=== PATIENT | female | born 1985 | race Two or more races ===

== ENCOUNTER 2016-07-23 21:56 | Emergency (ER) | payer MEDICAID ==
[2016-07-23 22:44] VITALS: BP 103/71
[2016-07-23] MEDS ORDERED: BENADRYL PO ONE (22:52)
[2016-07-23] MEDS ORDERED: PEPCID PO ONE (22:52)
[2016-07-23] MEDS ORDERED: DELTASONE PO ONE (22:53)
== END 2016-07-24 00:30 | disposition left against medical advice (07) ==
LOC: ED 21:56
DX: T78.40XA Allergy, unspecified, initial encounter (principal); M79.89 Other specified soft tissue disorders; Z53.21 Procedure and treatment not carried out due to patient leaving prior to being seen by health care provider; Y92.9 Unspecified place or not applicable
CPT/HCPCS: J7512

== ENCOUNTER 2017-03-01 19:54 | Emergency (ER) | payer SELFPAY ==
[2017-03-01 20:11] VITALS: BP 130/73
[2017-03-01 20:44] LABS: Bacteria,Urine 1+ /HPF (Negative); Bilirubin,Urine NEG (Negative); Blood,Urine SM (Negative); Color,Urine Yellow (Yellow); HCG Qualitative,Urine Negative (Negative); Mucus,Urine 1+ /HPF; Nitrite,Urine NEG (Negative); Protein,Urine <15 mg/dL mg/dL (Negative)
[2017-03-01] MEDS ORDERED: ZOFRAN ODT PO ONE (22:18)
[2017-03-01] MEDS ORDERED: TRIMOX PO ONE (22:18)
[2017-03-01] MEDS ORDERED: NORCO 5/325 PO ONE (22:18)
--- NOTE | 2017-03-01 22:26 | Emergency Department Report ---
ED ENT HPI - General Chief complaint: Earache Stated complaint: EAR,ABDOMINAL PAIN Time Seen by Provider: 03/01/17 21:53 Source: patient Mode of arrival: Ambulatory Limitations: No Limitations - History of Present Illness Initial comments: PT c/o R earache, started today while at work, now pain 10/10. no meds taken PT states she currently has a URI PT states her period is supposed to start in 2 days and she has had some pelvic discomfort. PT states of the past year, she has had pain prior to her menstrual cycle. PT denies dysuria, retention, and discharge MD complaint: ear pain -: Gradual, hour(s) (7) Location: R ear Severity: severe Severity scale (0 -10): 10 Quality: aching, constant, other (pressue ) Consistency: constant Improves with: none Worsens with: position, eating, movement Context- Ear: recent illness Associated Symptoms: cough, hearing loss, rhinorrhea. denies: fever, pain with swallowing, sore throat, discharge from ear - Related Data Previous Rx's Medication Instructions Recorded Last Taken Type Acetaminophen/Codeine [Tylenol #3] 1 tab PO Q6H PRN #12 tab 03/01/17 Unknown Rx Amoxicillin 500 mg PO BID #20 capsule 03/01/17 Unknown Rx Ibuprofen [Motrin] 600 mg PO Q8H PRN #15 tablet 03/01/17 Unknown Rx Allergies Allergy/AdvReac Type Severity Reaction Status Date / Time No Known Allergies Allergy Verified 03/01/17 20:08 ED Dental HPI - General Chief complaint: Earache Stated complaint: EAR,ABDOMINAL PAIN Time Seen by Provider: 03/01/17 21:53 Source: patient Mode of arrival: Ambulatory Limitations: No Limitations - Related Data Previous Rx's Medication Instructions Recorded Last Taken Type Acetaminophen/Codeine [Tylenol #3] 1 tab PO Q6H PRN #12 tab 03/01/17 Unknown Rx Amoxicillin 500 mg PO BID #20 capsule 03/01/17 Unknown Rx Ibuprofen [Motrin] 600 mg PO Q8H PRN #15 tablet 03/01/17 Unknown Rx Allergies Allergy/AdvReac Type Severity Reaction Status Date / Time No Known Allergies Allergy Verified 03/01/17 20:08 ED Review of Systems ROS: Stated complaint: EAR,ABDOMINAL PAIN Other details as noted in HPI Comment: All other systems reviewed and negative Constitutional: malaise. denies: fever ENT: ear pain, congestion. denies: throat pain Respiratory: cough. denies: shortness of breath Gastrointestinal: abdominal pain, nausea. denies: vomiting Genitourinary: abnormal menses (painful x 1 year ). denies: dysuria, frequency , discharge ED Past Medical Hx - Past Medical History Previous Medical History?: No - Surgical History Past Surgical History?: No Additional Surgical History: x 2 - Social History Smoking Status: Never Smoker Substance Use Type: None - Medications Home Medications: Home Medications Medication Instructions Recorded Confirmed Last Taken Type Acetaminophen/Codeine [Tylenol #3] 1 tab PO Q6H PRN #12 tab 03/01/17 Unknown Rx Amoxicillin 500 mg PO BID #20 capsule 03/01/17 Unknown Rx Ibuprofen [Motrin] 600 mg PO Q8H PRN #15 tablet 03/01/17 Unknown Rx ED Physical Exam - General Limitations: No Limitations General appearance: alert, in no apparent distress - Head Head exam: Present: atraumatic, normocephalic, normal inspection - Eye Eye exam: Present: normal appearance. Absent: conjunctival injection, nystagmus - ENT ENT exam: Present: normal orophraynx, mucous membranes moist, normal external ear exam - Expanded ENT Exam Expanded TM/Canal exam: Erythema: Right TM (R TM only partially visualized due to cerumen. TM with erythema, cloudy ), Loss of Landmarks: Right TM Mouth exam: Absent: drooling, trismus Throat exam: Positive: normal inspection - Neck Neck exam: Present: normal inspection, full ROM - Respiratory Respiratory exam: Present: normal lung sounds bilaterally. Absent: respiratory distress, wheezes, rales, rhonchi - Cardiovascular Cardiovascular Exam: Present: normal rhythm, normal heart sounds - GI/Abdominal GI/Abdominal exam: Present: soft, normal bowel sounds. Absent: tenderness, guarding, rebound, rigid - External exam: Present: other (PT refused ) - Extremities Exam Extremities exam: Present: normal inspection, full ROM - Back Exam Back exam: Present: normal inspection, full ROM - Neurological Exam Neurological exam: Present: alert, oriented X3 - Psychiatric Psychiatric exam: Present: normal affect, normal mood - Skin Skin exam: Present: warm, dry, intact, normal color ED Course Vital Signs 03/01/17 03/01/17 20:08 22:28 Temperature 98.7 F Pulse Rate 110 H Respiratory 18 18 Rate Blood Pressure 130/73 O2 Sat by Pulse 100 Oximetry - Reevaluation(s) Reevaluation #1: 03/01/17 22:31 PT aware of dx and plan of care. PT aware she will need to follow up with PCP. PT advised to follow up with [facility] due to changes in her menstrual cycle. PT advised not to use qtips or put anything in her ear. - Pulse Oximetry Interpretation Digit-Finger Initial Pulse Oximetry Readin Actions Taken: none ED Medical Decision Making - Differential Diagnosis om, oe, , uti Critical Care Time: No Critical care attestation.: If time is entered above; I have spent that time in minutes in the direct care of this critically ill patient, excluding procedure time. ED Disposition Clinical Impression: Pelvic pain Right otitis media Qualifiers: Otitis media type: suppurative Chronicity: acute Recurrence: not specified as recurrent Spontaneous tympanic membrane rupture: without spontaneous rupture Qualified Code(s): H66.001 - Acute suppurative otitis media without spontaneous rupture of ear drum, right ear Disposition: DC-01 TO HOME OR SELFCARE Is pt being admited?: No Does the pt Need Aspirin: No Condition: Stable Instructions: Dysmenorrhea (ED), Otitis Media (ED) Additional Instructions: No driving or alcohol after taking Tylenol #3 Finish all your antibiotics Do not put anything in your ear Follow up with PCP and [facility] in the next week Prescriptions: Acetaminophen/Codeine [Tylenol #3] 1 tab PO Q6H PRN #12 tab PRN Reason: Pain , Severe (7-10) Amoxicillin 500 mg PO BID #20 capsule Ibuprofen [Motrin] 600 mg PO Q8H PRN #15 tablet PRN Reason: Pain Referrals: PRIMARY [facility] [Primary Care Provider] - 3-5 Days MAT JONES MD [Staff Physician] - 3-5 Days [facility] [Outside] - 3-5 Days [facility] [Provider Group] - 3-5 Days [facility] [Outside] - 3-5 Days Forms: Work/School Release Form(ED) Time of Disposition: 22:34
== END 2017-03-01 22:44 | disposition home or self-care (01) ==
LOC: ED 19:54
DX: R10.2 Pelvic and perineal pain (principal); H66.001 Acute suppurative otitis media without spontaneous rupture of ear drum, right ear; R05 Cough
CPT/HCPCS: 81001; 81025; 99283; Q0162

== ENCOUNTER 2017-05-07 08:58 | Outpatient (CLI) | payer OTHER ==
--- NOTE | 2017-05-07 11:44 | Fluoroscopy Report ---
Hysterosalpingogram: Infertility. The patient was placed supine on the fluoroscopic table. A speculum was successfully placed through which a 5 Egyptian catheter was placed into the cervix. The catheter was stabilized with a balloon. Water-soluble contrast was slowly injected immediately filling normal appearing single fallopian tubes bilaterally with bilateral spillage of contrast. The uterus is anteflexed with no filling defect identified. No complication encountered. Impression: Normal exam.
== END 2017-05-07 08:59 | disposition home or self-care (01) ==
LOC: FLUORO 08:58
PROVIDERS: ATTEND Obstetrics & Gynecology
DX: N97.9 Female infertility, unspecified (principal); Z87.59 Personal history of other complications of pregnancy, childbirth and the puerperium
CPT/HCPCS: 58340; 74740; Q9967